=== PATIENT | female | born 1935 | race Caucasian/White ===

== ENCOUNTER 2018-03-11 10:33 | Emergency (ER) | payer OTHER ==
[2018-03-11 11:26] LABS: Absolute Lymphocytes (CBC) 2.2 K/uL (0.7-4.9); Absolute Monocytes 1.6 K/uL (0.1-1.3); Eosinophils % 2.4 % (0-4.4); Hematocrit 43.9 % (36.0-45.0); Lymphocytes % 22.1 % (15.3-44.8); MCH 32.9 pg (27.0-35.0); MCV 100.4 fL (80-100); MPV 9.9 fL (7.6-11.3); Monocytes % 15.4 % (3.3-12.3); RBC Red Blood Cell Count 4.37 M/uL (3.86-4.86)
--- NOTE | 2018-03-11 11:45 | RAD REPORT ---
EXAM DESCRIPTION: RAD - Chest Single View - 03/11/2018 11:40 am CLINICAL HISTORY: cough, pleuritic pain Chest pain. COMPARISON: Stone Protocol dated 03/11/2018 FINDINGS: Portable technique limits examination quality. The lungs are emphysematous but grossly clear. Enlarged central pulmonary arteries noted which can in dicate underlying pulmonary arterial hypertension. The heart is upper limit normal in size. No displa edda fractures. IMPRESSION: COPD with findings suspicious for pulmonary arterial hypertension.
--- NOTE | 2018-03-11 11:45 | RAD REPORT ---
EXAM DESCRIPTION: CT - Stone Protocol - 03/11/2018 11:29 am CLINICAL HISTORY: Abdominal pain. Left left flank pain for 1 week COMPARISON: None. TECHNIQUE: Computed axial tomography of the abdomen pelvis was obtained without oral or IV contrast. Lack of IV and oral contrast limits evaluation of solid organs, bowel, and vessels. Coronal reformat katelynn images were obtained and reviewed. All CT scans are performed using dose optimization technique as appropriate and may include automated exposure control or mA/KV adjustment according to patient size. FINDINGS: A mild left hydronephrosis is present. A left renal calculus is not seen. A couple of tiny nonobstructing right renal calculi are present. Within the proximal left ureter is a 4 millimeter calculus Hounsfield unit 860. The liver, pancreas and adrenals appear grossly normal There is no evidence of diverticulitis. Old fractures are present. R The spleen is either absent or very small IMPRESSION: 4 millimeter calculus proximal left ureter resulting in mild left hydronephrosis
[2018-03-11 12:04] LABS: ALT/SGPT 14 U/L (12-78); AST/SGOT 21 U/L (15-37); Albumin 3.2 g/dL (3.4-5.0); Alkaline Phosphatase 67 U/L (45-117); BUN Blood Urea Nitrogen 23 mg/dL (7-18); Bicarbonate 26 mmol/L (21-32); Bilirubin Direct 0.2 mg/dL (0-0.2); Bilirubin Total 0.6 mg/dL (0.2-1.0); Glucose Level 77 mg/dL (74-106); Lipase 139 U/L (73-393); Potassium 3.7 mmol/L (3.5-5.1); Protein, Total 6.9 g/dL (6.4-8.2); Sodium Level 144 mmol/L (136-145)
[2018-03-11] MEDS ORDERED: MEPERIDINE HCL 25 MG/0.5 ML ONE (12:14)
[2018-03-11] MEDS ORDERED: MAGNESIUM SULFATE 1 gm IVPB 1 GM/100 ML BAG IV ONE (12:14)
--- NOTE | 2018-03-11 12:38 | ER ---
Nurse's Notes [facility] Name: Kathryn Busby Age: 82 yrs Sex: Female : 1935 Arrival Date: 03/11/2018 Time: 10:37 Bed 6 Private MD: Out, [facility] Diagnosis: Ureterolithiasis;Hydronephrosis with renal and ureteral calculous obstruction Presentation: 03/11 10:54 Presenting complaint: LEFT flank pain x 1 week. Seen PCP on Wednesday, told she has hb kidney stone. On tamsulosin and [place] Day 4. Transition of care: patient was not received from another setting of care. Onset of symptoms was March 11, 2018. Risk Assessment: Do you want to hurt yourself or someone else? Patient reports no desire to harm self or others. Initial Sepsis Screen: Does the patient meet any 2 criteria? No. Patient's initial sepsis screen is negative. Does the patient have a suspected source of infection? No. Patient's initial sepsis screen is negative. Care prior to arrival: Medication(s) given: tamsulosin at 0730. 10:54 Method Of Arrival: Wheelchair 10:54 Acuity: LUCRETIA 3 hb Historical: - Allergies: 11:04 No Known Allergies; hb - Home Meds: 11:04 zolpidem 5 mg Oral tab 1 tab once daily [Active]; Combivent 18-103 mcg/actuation Inhl hb aero 2 puffs 4 times per day [Active]; Prolia 60 mg/mL subcutaneous syrg 1 mL every 6 mo [Active]; Skelaxin 800 mg Oral tab 1 tab 3 times per day [Active]; donepezil 10 mg oral tab 1 tab once daily [Active]; methimazole 10 mg Oral tab 1 tab once daily [Active]; gabapentin 300 mg oral cap 1 cap 3 times per day [Active]; meloxicam 7.5 mg oral tab 1 tab once daily [Active]; Symbicort 160-4.5 mcg/actuation inhalation HFAA 2 puffs 2 times per day [Active]; Centrum oral oral [Active]; Fish Oil oral oral [Active]; Calcarb 600 With Vitamin D 600 mg(1,500mg) -200 unit Oral tab [Active]; - PMHx: 11:04 COPD; hb - Immunization history:: Adult Immunizations up to date. - Social history:: Smoking status: Patient/guardian denies using tobacco. - Ebola Screening: : No symptoms or risks identified at this time. - Family history:: not pertinent. - Hospitalizations: : No recent hospitalization is reported. Screenin:05 Abuse screen: Denies threats or abuse. Denies injuries from another. Nutritional hb screening: No deficits noted. Tuberculosis screening: No symptoms or risk factors identified. Fall Risk Total Miles Fall Scale indicates Low Risk Score (25-44 pts). Fall prevention measures have been instituted. Side Rails Up X 2 Frequent Obs/Assesments occuring Family Present and informed to notify staff if they need to leave bedside As available Patient and Family Educated on Fall Prevention Program and strategies. Assessment: 11:00 General: Appears in no apparent distress. uncomfortable, Behavior is cooperative, hb anxious. Pain: Pain currently is 8 out of 10 on a pain scale. Neuro: Level of Consciousness is awake, alert, obeys commands, Oriented to person, place, time, situation. Cardiovascular: Heart tones S1 S2 present Capillary refill < 3 seconds Patient's skin is warm and dry. Respiratory: Airway is patent Trachea midline Respiratory effort is even, labored, Respiratory pattern is tachypnea. GI: Abdomen is non-distended, Bowel sounds present X 4 quads. Abd is soft and non tender X 4 quads. Reports nausea. : Reports pain in left flank(s). EENT: No signs and/or symptoms were reported regarding the EENT system. Derm: Skin is intact, is healthy with good turgor. Musculoskeletal: No signs and/or symptoms reported regarding the musculoskeletal system. 12:00 Reassessment: Patient appears in no apparent distress at this time. Patient and/or hb family updated on plan of care and expected duration. Pain level reassessed. Patient is alert, oriented x 3, equal unlabored respirations, skin warm/dry/pink. 12:30 Reassessment: Daughter Kim Phan [phone]. 13:00 Reassessment: Patient appears in no apparent distress at this time. Patient and/or hb family updated on plan of care and expected duration. Pain level reassessed. Patient is alert, oriented x 3, equal unlabored respirations, skin warm/dry/pink. 13:48 Reassessment: Report given to EMS. sv Vital Signs: 10:56 BP 135 / 77; Pulse 67; Resp 22; Temp 98.3; Pulse Ox 88% on R/A; Pain 8/10; hb 10:59 Pulse Ox 94% on 2 lpm NC; hb 11:56 BP 145 / 61; Pulse 74; Resp 21; Pulse Ox 94% on 2 lpm NC; dh3 12:24 BP 136 / 66; Pulse 56; Resp 22; Pulse Ox 94% on 2 lpm NC; hb 13:08 BP 107 / 47; Pulse 58; Resp 20; Pulse Ox 92% on 2 lpm NC; dh3 ED Course: 10:37 Patient arrived in ED. sb2 10:37 Out, of Town is Private Physician. sb2 10:48 Matthew Balderas MD is Attending Physician. rn 10:54 Kayleen Salinas, DAKOTAH is Primary Nurse. hb 10:56 Triage completed. hb 11:00 Patient has correct armband on for positive identification. Placed in gown. Bed in low hb position. Call light in reach. Side rails up X 1. 11:05 Arm band placed on left wrist. hb 11:14 Initial lab(s) drawn, by me, sent to lab. Inserted saline lock: 22 gauge in left dh3 forearm, using aseptic technique. Blood collected. 11:27 CT completed. Patient tolerated procedure well. Patient moved to CT via stretcher. Patient moved back from CT. 11:29 Patient moved to radiology via stretcher. 11:29 CT Stone Protocol In Process Unspecified. EDMS 11:39 X-ray completed. Patient tolerated procedure well. ag1 11:40 XRAY Chest (1 view) In Process Unspecified. EDMS 12:01 Urine collected: hat, fluorescent yellow color. dh3 13:26 No provider procedures requiring assistance completed. Patient transferred, IV remains sv in place. intact. Administered Medications: 12:06 Drug: Magnesium Sulfate 1 grams Route: IVPB; Infused Over: 1 hrs; Site: left forearm; hb 13:01 Follow up: Response: No adverse reaction; IV Status: Completed infusion hb 12:12 Drug: Demerol - Meperidine 12.5 mg Route: IVP; Site: left forearm; hb 13:00 Follow up: Response: No adverse reaction hb Outcome: 12:37 ER care complete, transfer ordered by . rn 13:25 Transferred by ground EMS to [facility], Transfer form completed. sv Note: Report given to Mingo CLAIRE 13:25 Condition: stable 13:25 Instructed on the need for transfer. 13:48 Patient left the ED. sv Signatures: Dispatcher [employer] EDCamryn Hill RN RN sv Jones, Matthew Handley MD MD rn Gallaway, Ashley ag1 Kayleen Salinas RN RN hb Herrera, Deanna 3 [place]ena Motley 2
--- NOTE | 2018-03-11 12:38 | EDPHYS ---
Physician Documentation [facility] Name: Kathryn Busby Age: 82 yrs Sex: Female : 1935 Arrival Date: 03/11/2018 Time: 10:37 Bed 6 Private MD: Out, [facility] ED Physician Matthew Balderas HPI: 03/11 11:06 This 82 yrs old Female presents to ER via Wheelchair with complaints of rn Possible Kidney Stone. 11:06 The patient complains of pain in the left mid back. The pain does not radiate. Onset: rn The symptoms/episode began/occurred 4 day(s) ago. Modifying factors: The symptoms are alleviated by nothing. the symptoms are aggravated by nothing. Associated signs and symptoms: Pertinent positives: nausea, vomiting, Pertinent negatives: fever. Severity of pain: At its worst the pain was moderate in the emergency department the pain is unchanged. The patient has experienced similar episodes in the past. The patient has been recently seen by a physician:. Reports seen at outside ER Wednesday, for this pain, ct showed large kidney stone, reports still having pain, no migration, + nausea and vomiting, no hematuria, also reports coughing greenish sputum, oxygen at baseline 2L. . Historical: - Allergies: 11:04 No Known Allergies; hb - Home Meds: 11:04 zolpidem 5 mg Oral tab 1 tab once daily [Active]; Combivent 18-103 mcg/actuation Inhl hb aero 2 puffs 4 times per day [Active]; Prolia 60 mg/mL subcutaneous syrg 1 mL every 6 mo [Active]; Skelaxin 800 mg Oral tab 1 tab 3 times per day [Active]; donepezil 10 mg oral tab 1 tab once daily [Active]; methimazole 10 mg Oral tab 1 tab once daily [Active]; gabapentin 300 mg oral cap 1 cap 3 times per day [Active]; meloxicam 7.5 mg oral tab 1 tab once daily [Active]; Symbicort 160-4.5 mcg/actuation inhalation HFAA 2 puffs 2 times per day [Active]; Centrum oral oral [Active]; Fish Oil oral oral [Active]; Calcarb 600 With Vitamin D 600 mg(1,500mg) -200 unit Oral tab [Active]; - PMHx: 11:04 COPD; hb - Immunization history:: Adult Immunizations up to date. - Social history:: Smoking status: Patient/guardian denies using tobacco. - Ebola Screening: : No symptoms or risks identified at this time. - Family history:: not pertinent. - Hospitalizations: : No recent hospitalization is reported. ROS: 11:06 Constitutional: Negative for fever, chills, and weight loss, Eyes: Negative for injury, rn pain, redness, and discharge, Neck: Negative for injury, pain, and swelling, Cardiovascular: Negative for chest pain, palpitations, and edema, Respiratory: Negative for shortness of breath Abdomen/GI: Negative for diarrhea, and constipation, MS/Extremity: Negative for injury and deformity, Skin: Negative for injury, rash, and discoloration, Neuro: Negative for headache, weakness, numbness, tingling, and seizure. Exam: 11:06 Constitutional: This is a well developed, well nourished patient who is awake, alert, rn and in no acute distress. Head/Face: Normocephalic, atraumatic. Eyes: Pupils equal round and reactive to light, extra-ocular motions intact. Lids and lashes normal. Conjunctiva and sclera are non-icteric and not injected. Cornea within normal limits. Periorbital areas with no swelling, redness, or edema. Chest/axilla: Normal chest wall appearance and motion. + left lateral/inferior rib area with tenderness to percussion, no lesions, no ecchymosis, no crepitus Cardiovascular: Regular rate and rhythm with a normal S1 and S2. No gallops, murmurs, or rubs. Normal PMI, no JVD. No pulse deficits. Respiratory: Lungs have equal breath sounds bilaterally, clear to auscultation and percussion. No rales, rhonchi or wheezes noted. No increased work of breathing, no retractions or nasal flaring. Abdomen/GI: Soft, non-tender, with normal bowel sounds. No distension or tympany. No guarding or rebound. No evidence of tenderness throughout. Skin: Warm, dry with normal turgor. Normal color with no rashes, no lesions, and no evidence of cellulitis. MS/ Extremity: Pulses equal, no cyanosis. Neurovascular intact. Full, normal range of motion. Equal circumference. Neuro: Awake and alert, GCS 15, oriented to person, place, time, and situation. Cranial nerves II-XII grossly intact. Motor strength 5/5 in all extremities. Sensory grossly intact. Vital Signs: 10:56 BP 135 / 77; Pulse 67; Resp 22; Temp 98.3; Pulse Ox 88% on R/A; Pain 8/10; hb 10:59 Pulse Ox 94% on 2 lpm NC; hb 11:56 BP 145 / 61; Pulse 74; Resp 21; Pulse Ox 94% on 2 lpm NC; dh3 12:24 BP 136 / 66; Pulse 56; Resp 22; Pulse Ox 94% on 2 lpm NC; hb 13:08 BP 107 / 47; Pulse 58; Resp 20; Pulse Ox 92% on 2 lpm NC; dh3 MDM: 10:48 Patient medically screened. rn 11:49 ED course: pt declines pain medication at this time. rn 12:36 Differential diagnosis: nephrolithiasis, pyelonephritis. Data reviewed: vital signs, rn nurses notes, lab test result(s), radiologic studies, CT scan, and as a result, I will admit patient. Counseling: I had a detailed discussion with the patient and/or guardian regarding: the historical points, exam findings, and any diagnostic results supporting the discharge/admit diagnosis, lab results, radiology results, the need to transfer to another facility, [facility] does not immediately have the required specialist. Response to treatment: the patient's symptoms have mildly improved after treatment, and as a result, I will admit patient. ED course: Accepted for transfer to [facility] for urology consult and likely stent. . 03/11 10:58 Order name: Basic Metabolic Panel; Complete Time: 12:34 rn 03/11 10:58 Order name: CBC with Diff rn 03/11 10:58 Order name: Hepatic Function; Complete Time: 12:34 rn 03/11 10:58 Order name: Lipase; Complete Time: 12:34 rn 03/11 10:58 Order name: Urine Microscopic Only rn 03/11 10:58 Order name: Urine Culture 03/11 10:58 Order name: IV Saline Lock; Complete Time: 11:11 rn 03/11 10:58 Order name: Labs collected and sent; Complete Time: 11:11 rn 03/11 10:58 Order name: CT Stone Protocol; Complete Time: 11:46 rn 03/11 10:58 Order name: XRAY Chest (1 view); Complete Time: 11:46 rn 03/11 12:05 Order name: Urine Dipstick--Ancillary (enter results) [facility] 03/11 13:17 Order name: CBC Smear Scan [facility] 03/11 10:58 Order name: Urine Dipstick-Ancillary (obtain specimen); Complete Time: 11:46 rn 03/11 12:36 Order name: NPO; Complete Time: 12:54 rn Administered Medications: 12:06 Drug: Magnesium Sulfate 1 grams Route: IVPB; Infused Over: 1 hrs; Site: left forearm; hb 13:01 Follow up: Response: No adverse reaction; IV Status: Completed infusion hb 12:12 Drug: Demerol - Meperidine 12.5 mg Route: IVP; Site: left forearm; hb 13:00 Follow up: Response: No adverse reaction hb Disposition: 03/11/18 12:[address] [facility]. Diagnosis are Ureterolithiasis, Hydronephrosis with renal and ureteral calculous obstruction. - Reason for transfer: Higher level of care. - Accepting physician is . - Condition is Stable. - Problem is an ongoing problem. - Symptoms have improved. Signatures: Dispatcher [employer] [facility] Camryn Fay RN RN sv Nieto, Roman, MD MD rn Baxter, Heather, RN RN Corrections: (The following items were deleted from the chart) 13:48 12:37 03/11/2018 12:[address] [facility]. Diagnosis is sv Ureterolithiasis; Hydronephrosis with renal and ureteral calculous obstruction. Reason for transfer: Higher level of care. Accepting physician is . Condition is Stable. Problem is an ongoing problem. Symptoms have improved. rn
[2018-03-11 13:09] LABS: Urine Bacteria <20 /HPF (<20); Urine RBC <5 /HPF (NONE SEEN)
[2018-03-11 13:10] LABS: Urine Blood TRACE (NEG); Urine Glucose NEGATIVE (NEG); Urine Protein NEGATIVE (NEG); Urine Specific Gravity 1.015 (1.005-1.030); Urine pH 7.5 (5.0-7.0)
[2018-03-11 13:10] LABS: Urine Amorphous Sediment 2+ /HPF (NONE SEEN); Urine Culture Reflex Order NOT NEEDED
[2018-03-11 13:17] LABS: Blood Morphology Comment NOT SEEN (NOT SEEN); Platelet Estimate ADEQ; Urine White Blood Cell Casts OK
== END 2018-03-11 13:48 | disposition short-term general hospital (02) ==
LOC: ER 10:33
DX: N13.2 Hydronephrosis with renal and ureteral calculous obstruction (principal); J44.9 Chronic obstructive pulmonary disease, unspecified
CPT/HCPCS: 36415; 71045; 74176; 76377; 80048; 80076; 83690; 85025; 87086; 87088; 96365; 96375; 99285; J2175; J3475; 81003; 81015